=== PATIENT | female | born 1995 | race Caucasian/White ===

== ENCOUNTER 2017-11-25 13:47 | Emergency (ER) | payer OTHER ==
[2017-11-25] MEDS ORDERED: HYDROmorphONE/DILAUDID 2 MG/ML INJ IVP ONE (13:53)
[2017-11-25] MEDS ORDERED: HYDROmorphONE/DILAUDID 1 MG/ML INJ ONE (14:12)
[2017-11-25] MEDS ORDERED: LET GEL TOPICAL 1 EA SYR TP ONE (14:17)
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
[2017-11-25] MEDS ORDERED: OXYCODONE/APAP 5/325 TAB PO ONE (14:52)
[2017-11-25 15:21] VITALS: BP 158/85
== END 2017-11-25 15:24 | disposition home or self-care (01) ==
DX: S42.034A Nondisplaced fracture of lateral end of right clavicle, initial encounter for closed fracture (principal); S30.811A Abrasion of abdominal wall, initial encounter; V18.2XXA Unspecified pedal cyclist injured in noncollision transport accident in nontraffic accident, initial encounter
CPT/HCPCS: 96374; A4565; J1170

== ENCOUNTER → 2017-11-30 | Outpatient (CLI) | payer OTHER | LOC: BMCIMAGING 08:59 | PROVIDERS: ATTEND Orthopaedic Surgery Hand Surgery | DX: S42.002D Fracture of unspecified part of left clavicle, subsequent encounter for fracture with routine healing (principal) ==

== ENCOUNTER → 2017-12-07 | Outpatient (CLI) | payer OTHER | LOC: BMCIMAGING 16:12 | PROVIDERS: ATTEND Orthopaedic Surgery Hand Surgery | DX: S42.035D Nondisplaced fracture of lateral end of left clavicle, subsequent encounter for fracture with routine healing (principal) ==

== ENCOUNTER → 2017-12-21 | Outpatient (CLI) | payer OTHER | LOC: BMCIMAGING 16:12 | PROVIDERS: ATTEND Orthopaedic Surgery Hand Surgery | DX: S42.035D Nondisplaced fracture of lateral end of left clavicle, subsequent encounter for fracture with routine healing (principal) ==